=== PATIENT | female | born 1990 | race Caucasian/White ===

== ENCOUNTER 2018-04-18 20:14 | Emergency (ER) | payer OTHER ==
[2018-04-18] MEDS: LORAZEPAM 1 MG TAB PO (21:05)
[2018-04-18] MEDS: DIPHTH/TET/ACEL PERTUSS (ADULT) 0.5 ML VIAL IM* (21:06)
[2018-04-18] MEDS: LIDOCAINE 1% (MPF) 5 ML VIAL INJ (21:21)
[2018-04-18] MEDS: LIDOCAINE 1% (MDV) 10 ML INJ INJ (21:21)
== END 2018-04-18 21:56 | disposition home or self-care (01) ==
LOC: FTE 21:56
DX: S61.511A Laceration without foreign body of right wrist, initial encounter (principal); W26.8XXA Contact with other sharp object(s), not elsewhere classified, initial encounter; Y92.9 Unspecified place or not applicable; Z23 Encounter for immunization
CPT/HCPCS: 12002; 73110-RT; 90471; 90715; 99283-25

== ENCOUNTER 2018-05-02 07:37 | Emergency (ER) | payer OTHER ==
[2018-05-02] MEDS: predniSONE 20 MG TAB PO (09:06)
[2018-05-02] MEDS: EPINEPHrine 1 MG INJ IM (09:06)
[2018-05-02] MEDS: DIPHENHYDRAMINE 50 MG CAP PO (09:06)
[2018-05-02] MEDS: FAMOTIDINE 20 MG TAB PO (09:06)
== END 2018-05-02 09:25 | disposition home or self-care (01) ==
LOC: FTE 07:37
DX: L50.9 Urticaria, unspecified (principal)
CPT/HCPCS: 96372; 99291-25